=== PATIENT | male | born 1950 | race Caucasian/White ===

== ENCOUNTER 2017-11-18 08:01 | Outpatient (CLI) | payer MEDICARE ==
[~2017-11-18] VITALS: Ht 177.8 cm; Wt 99.1 kg
--- NOTE | ~2017-11-18 | HEMODYNAMI ---
PATIENT:ERICKA PAREDES MEDICAL RECORD: [id number] : 50 LOCATION:[facility] ADMISSION DATE: 11/18/17 Generatedon:11/18/201711:10 Patient name: ERICKA PAREDES Patient #: [id number] SSN: D OB: 1950 Date of study: 11/18/2017 Page: Of Hemodynamic Procedure Report Patient Data Patient Demographics Procedure consent was obtained First Name: ERICKA Gender: Male Last Name: LENA : 1950 Patient #: [id number] Age: 67 year(s) Race: Unknown Additional ID: [id number] Contact details [address]: [address] [place] [address] [address] State: [place] City: [place] Zip code: [address] Admission Admission Data Admission Date: 11/18/2017 Admission Time: 8:01 Admit Source: Other Procedure Procedure Types Cath Procedure Diagnostic Procedure LHC LHC w/Coronaries Procedure Description Procedure Date Procedure Date: 11/18/2017 Procedure Start Time: 10:53 Procedure End Time: 11:08 Procedure Staff Name Function Aakash Mccann MD Performing Physician Sánchez Acosta RT Monitor Bernabe Way RT Scrub Julio Coffey RN Nurse Jamal Lance RT Cigarette Examiner Procedure Data Cath Procedure Fluoroscopy Diagnostic fluoroscopy Total fluoroscopy Time: 4.8 time: 4.8 min min Diagnostic fluoroscopy Total fluoroscopy dose: 459 dose: 459 mGy mGy Contrast Material Contrast Material Type Amount (ml) Isovue 300 115 Entry Location Entry Primary Successful Side Size Upsize Upsize Entry Closure Amaya ccessful Closure Location (Fr) 1 (Fr) 2 (Fr) Remarks Device Remarks Radial Right 6 Fr Mechanical artery Short Compression Estimated blood loss: 10 ml Diagnostic catheters Device Type Used For End Catheter Placement DIAGNOSTIC Kinzers 110cm 5 Procedure Fr catheter ([id number]) Procedure Complications No complications Procedure Medications Medication Administration Route Dosage Oxygen etCO2 Nasal cannula 2 l/min Heparin Flush Bag added to field 2 bags (1000units/500ml NS) 0.9% NaCl I.V. 100 ml/hr Radial Cocktail added to field 1 syringe (Verapomil 2mg/Nitro 400mcg/Heparin 1500units) Fentanyl I.V. 50 mcg Versed I.V. 1 mg Radial Cocktail I.A. 1 syringe (Verapomil 2mg/Nitro 400mcg/Heparin 1500units) Fentanyl I.V. 50 mcg Versed I.V. 1 mg Heparin Bolus I.V. 4000 units Integrilin (Bolus I.V. 9 ml 2mg/ml) Integrilin (Bolus wasted 1 ml 2mg/ml) Hemodynamics Rest Heart Rate: 70 (bpm) Pressure Samples Time Site Value (mmHg) Purpose Heart Use Rate(bpm) 11:00 AO 152/80(110) Snapshot 71 11:01 AO 144/93(113) Snapshot 71 Snapshots Pre Cath Intra NCS Post Cath Vital Signs Time Heart Resp SPO2 etCO2 NIBP (mmHg) Rhythm Pain Sedation Rate (ipm) (%) (mmHg) Status Level (bpm) 10:44:54 69 16 96 39.1 167/97(142) NSR 0 (11) 10(A) , No pain 10:49:28 68 17 97 47.3 157/86(137) NSR 0 (11) 10(A) , No pain 10:53:48 82 16 96 48.8 163/100(143) NSR 0 (11) 10(A) , No pain 10:58:16 84 17 95 45.8 158/103(144) NSR 0 (11) 9(A) , No pain 11:03:42 73 16 92 44.3 169/97(138) NSR 0 (11) 9(A) , No pain 11:06:44 76 16 95 41.3 143/77(126) NSR 0 (11) 9(A) , No pain Medications Time Medication Route Dose Verified Delivered Reason Not es Effectiveness by by 10:44:32 Oxygen etCO2 2 l/min Aakash Kim Per physician Nasal Siobhan Coffey RN cannula 10:44:40 Heparin Flush added 2 bags Aakash Kim used for Bag to Siobhan Coffey feed handler (1000units/500ml field NS) 10:44:49 0.9% NaCl I.V. 100 Aakash Kim Per physician ml/hr Siobhan Coffey RN 10:44:58 Radial Cocktail added 1 Aakash Kim used for (Verapomil to syringe Siobhan Coffey RN procedure 2mg/Nitro field 400mcg/Heparin 1500units) 10:52:16 Fentanyl I.V. 50 mcg Aakash Kim for sedation Siobhan Coffey RN 10:52:23 Versed I.V. 1 mg Aakash Whitmorey for sedation Siobhan Coffey RN 10:53:22 Radial Cocktail I.A. 1 Aakash Finn for (Verapomil syringe Siobhan Mccann MD vasodilation 2mg/Nitro 400mcg/Heparin 1500units) 10:54:03 Fentanyl I.V. 50 mcg Aakash Kim for sedation Siobhan Coffey RN 10:54:07 Versed I.V. 1 mg Aakash Kim for sedation Siobhan Coffey RN 11:01:10 Heparin Bolus I.V. 4000 Aakash Kim for units Siobhan Coffey RN anticoagulation 11:01:24 Integrilin I.V. 9 ml Aakash Kim for (Bolus 2mg/ml) Siobhan Coffey RN antiplatelet therapy 11:01:33 Integrilin wasted 1 ml Aakash Kim for (Bolus 2mg/ml) Siobhan Coffey RN antiplatelet therapy Procedure Log Time Note 10:15:09 Jamal Lance RT(R) sent for patient. Start room use. 10:32:21 Informed consent obtained and on chart 10:32:25 Admit Source: Other 10:33:05 Diagnostic Cath status Elective 10:33:15 Time tracking: Regular hours (M-F 7:00 - 5:00) 10:33:20 Plan of Care:Hemodynamics will remain stable., Cardiac rhythm will remain stable., Comfort level will be maintained., Respiratory function will remain adequate., Patient/ family verbilizes understanding of procedure., Procedure tolerated without complication., Recovers from procedure without complications.. 10:33:31 Patient received from Pre/Post Procedure Room to CCL 3 Alert and oriented. Tansferred to table in Supine position. 10:33:32 Warm blankets applied, and eugenio hugger turned on for patient comfort. 10:33:32 Correct patient and procedure confirmed by team. 10:33:33 ECG and BP/O2 sat monitors applied to patient. 10:33:35 Pre-procedure instructions explained to patient. 10:33:36 Pre-op teaching completed and patient verbalized understanding. 10:33:37 Family in waiting room. 10:33:38 Patient NPO since Midnight. 10:43:29 Vital chart was started 10:44:32 Oxygen 2 l/min etCO2 Nasal cannula was administered by Julio Coffey RN; Per physician; 10:44:40 Heparin Flush Bag (1000units/500ml NS) 2 bags added to field was administered by Julio Coffey RN; used for procedure; 10:44:49 0.9% NaCl 100 ml/hr I.V. was administered by Julio Coffey RN; Per physician; 10:44:58 Radial Cocktail (Verapomil 2mg/Nitro 400mcg/Heparin 1500units) 1 syringe added to field was administered by Julio Coffey RN; used for procedure; 10:50:39 Baseline sample Acquired. 10:50:42 Rhythm: sinus rhythm 10:50:43 Full Disclosure recording started 10:50:45 Is the patient allergic to Iodine/contrast media? No. 10:50:53 Is patient on blood thinner?No 10:50:54 Patient diabetic? No. 10:50:57 Previous problem with sedation/anesthesia? No ? 10:50:58 Snore? Yes 10:51:00 Sleep apnea? No 10:51:01 Deviated septum? No 10:51:02 Opens mouth fully? Yes 10:51:02 Sticks out tongue? Yes 10:51:04 Airway obstruction? No ? 10:51:07 Dentures? No ? 10:51:09 Pre procedure: right dorsailis pedis pulse 1+ Palpable, but thready & weak; easily obliterated 10:51:11 Modified Yogesh's test Ulnar < 7 seconds 10:51:12 Patient pain scale 0/10 ?. 10:51:16 IV patent on arrival in left forearm with 0.9% NaCl at [facility]. 10:51:19 Lab results completed and on chart. 10:51:22 Right Radial & Right Groin area was prepped with chlora-prep and draped in sterile fashion 10:51:23 Alarms reviewed by R. N. 10:51:23 Sharps counted by scrub and verified by R.N. 10:51:26 --------ALL STOP TIME OUT------ 10:51:26 Final Timeout: patient, procedure, and site verified with staff and physician. All members of the team are in agreement. 10:51:28 Right Radial & Right Groin site verified by team. 10:51:30 Physical assessment completed. ASA score P 2 - A patient with mild systemic disease as per Aakash Mccann MD. 10:51:34 Sedation plan: IV Moderate Sedation Medication:Versed, Fentanyl 10:52:16 Fentanyl 50 mcg I.V. was administered by Julio Coffey RN; for sedation; 10:52:23 Versed 1 mg I.V. was administered by Julio Coffey RN; for sedation; 10:52:24 Zero performed for pressure channel P1 10:53:08 Use device set Radial Dx or PCI 10:53:09 Tegaderm 4 x 4 (1626W) opened to sterile field. 10:53:10 ACIST Manifold (48184) opened to sterile field. 10:53:11 ACIST Hand Control (54266) opened to sterile field. 10:53:14 ACIST Syringe (33845) opened to sterile field. 10:53:15 Medline Cath Pack ([id number]) opened to sterile field. 10:53:15 Bag Decanter (2002S) opened to sterile field. 10:53:15 DIAGNOSTIC WIRE .035 260cm J wire (015449) opened to sterile field. 10:53:16 MBrace Wrist Support ([id number]) opened to sterile field. 10:53:17 SHEATH 6Fr Prelude Radial ([id number]) opened to sterile field. 10:53:22 Radial Cocktail (Verapomil 2mg/Nitro 400mcg/Heparin 1500units) 1 syringe I.A. was administered by Aakash Mccann MD; for vasodilation; 10:53:23 Procedure started. 10:53:27 Local anesthetic to right radial artery with Lidocaine 2% by Aakash Mccann MD.INITIAL ACCESS ONLY 10:53:49 A 6 Fr Short sheath was inserted into the Right Radial artery 10:53:55 A DIAGNOSTIC Kinzers 110cm 5 Fr catheter ([id number]) was advanced over the wire and used for Procedure. 10:54:03 Fentanyl 50 mcg I.V. was administered by Julio Coffey RN; for sedation; 10:54:07 Versed 1 mg I.V. was administered by Julio Coffey RN; for sedation; 10:54:12 LV angiography performed. 10:54:13 LV gram done using ALVAREZ 10:54:31 EF : 55 % 10:54:34 Injector settings: Ml/sec: 7, Volume: 15, 10:55:47 RCA angiography performed. 10:56:37 Catheter exchanged over wire. 10:56:41 Use device set TAU PCI 10:56:56 GUIDE 6FR EBU 3.5 SH catheter ([id number]) opened to sterile field. 10:57:15 6 Fr EBU 3.5 SH guide catheter was inserted over the wire 10:57:42 LCA angiography performed. 10:59:24 INFLATOR Merit BasixCompak (BB3970) opened to sterile field. 10:59:43 FIELDER XT J 300cm guide wire ([id number]) opened to sterile field. 11:00:36 Fielder wire advanced. 11:01:10 Heparin Bolus 4000 units I.V. was administered by Julio Coffey RN; for anticoagulation; 11:01:24 Integrilin (Bolus 2mg/ml) 9 ml I.V. was administered by Julio Coffey RN; for antiplatelet therapy; 11:01:33 Integrilin (Bolus 2mg/ml) 1 ml wasted was administered by Julio Coffey RN; for antiplatelet therapy; 11:04:27 The EMERGE OTW 1.5 x 15 balloon ([id number]) was advanced and then removed because of failure to cross lesion 11:04:40 Wire removed. unable to cross lesion. 11:04:43 Guide catheter removed. 11:04:45 TR BAND Standard ([id number]) opened to sterile field. 11:05:04 Sheath removed intact; hemostasis achieved with Mechanical Compression to the Right Radial artery. 11:05:17 Procedure ended.(Physican Out) 11:06:40 Fluoroscopy time 04.80 minutes. 11:06:46 Fluoroscopy dose: 459 mGy 11:06:46 Flurop Dose total: 459 11:06:57 Contrast amount:Isovue 300 115ml. 11:06:58 Sharps counted by scrub and verified by R.N. 11:07:01 TR band inflated with 11cc of air. 11:07:02 Insertion/operative site no bleeding no hematoma. 11:07:03 Post Procedure Pulses reassessed and unchanged 11:07:05 Post-procedure physical assessment completed. ASA score P 2 - A patient with mild systemic disease as per Aakash Mccann MD. 11:07:08 Post procedure rhythm: unchanged. 11:07:11 Estimated blood loss: 10 ml 11:07:12 Post procedure instruction explained to patient.Patient verbalizes understanding. 11:07:12 Patient needs reinforcement of post procedure teaching. 11:07:21 Procedure and supply charges have been captured, reviewed, submitted and are correct. 11:07:23 Procedure Complication : No complications 11:07:51 Vital chart was stopped 11:07:52 See physician's report for complete and final results. 11:07:54 Report given to Pre/Post Procedure Room. 11:08:01 Patient transfered to Pre/Post Procedure Room with Stretcher. 11:08:03 Procedure ended. 11:08:03 Full Disclosure recording stopped 11:08:44 End room use (Document Last) Intervention Summary Intervention Notes Time ActionType Lesion and Equipment Action# Pressure Duration Attributes Used 11:04:27 Discard EMERGE OTW Balloon 1.5 x 15 balloon ([id number]) Device Usage Item Name Manufacture Quantity Catalog Number Hospital Part Current Minimal Lot# / Charge Number Stock Stock Serial# Code Tegaderm 4 x 4 3M 1 [id number] 835145 [id number] 5 (1626W) ACIST Manifold Acist 1 97608 588236 625506 584673 5 (79271) [employer] Inc ACIST Hand Acist 1 49414 163660 084963 216870 5 Control (21786) [employer] Inc ACIST Syringe Acist 1 95702 782205 380545 183167 20 (74899) Medical Systems Inc Medline Cath Cardinal 1 [id number] 344993 48337 206320 5 Pack Health ([id number]) Bag Decanter Microtek 1 2001S 419540 63260 469041 5 (2001S) Medical Inc. DIAGNOSTIC WIRE [place] 1 267816 485748 516486 375244 30 .035 260cm J wire (706870) MBrace Wrist Advanced 1 140-0250-00 446941 96753 344077 5 Support Vascular ([id number]) Dynamics SHEATH 6Fr Merit 1 [id number] 668497 884644 905000 5 Prelude Radial Medical ([id number]) DIAGNOSTIC Terumo 1 40-8346 112271 049343 094258 5 Kinzers 110cm 5 Fr catheter (972569) GUIDE 6FR EBU Medtronic 1 [id number] 371418 21019 151198 1 3.5 SH catheter ([id number]) INFLATOR Merit Merit 1 QB9097 263631 805168 059058 15 [facility] (SW7024) FIELDER XT J [place] 1 [id number] 051718 777202 274373 5 300cm guide Vascular wire ([id number]) EMERGE OTW 1.5 [place] 1 [id number] 656194 739340 784625 5 [id number] x 15 balloon Scientific ([id number]) TR BAND Terumo 1 [id number] 351134 849909 436039 40 Standard ([id number]) Signature Audit [place] Stage Time Signature Unsigned Intra-Procedure 11/18/2017 Sánchez Acosta 11:10:46 AM RT(R) Signatures Monitor : Sánchez Acosta RT Signature : Date : Time : [address] [address]
--- NOTE | ~2017-11-18 | OP ---
PATIENT NAME: ERICKA PAREDES MEDICAL RECORD: [id number] :50 LOCATION:[facility] ADMISSION DATE: SURGEON: SOCO ESTEBAN MD DATE OF OPERATION: 11/18/2017 FINDINGS: 1. Left heart catheterization. 2. Selective coronary angiography. 3. Left ventriculogram. 4. Attempted, but failed PTCA stent of the LAD due to total occlusion. PROCEDURE IN DETAIL: After informed consent was obtained and after a detailed description of the risks, benefits as well as alternative therapies, the patient elected to proceed with angiogram and heart catheterization. FINDINGS: Left ventriculogram was performed in standard 30-degree ALVAREZ view, reveals good cardiac wall motion throughout all segments. Overall ejection fraction estimated 60%. SELECTIVE CORONARY ANGIOGRAPHY: 1. Left main is with no significant angiographic disease. 2. Left anterior descending has a chronic total occlusion in the proximal vessel. The distal LAD has a good lumen suitable for grafting. 3. The left circumflex has at least 80% stenosis proximally with a good lumen distally suitable for grafting. 4. Right coronary artery has 95% stenosis in the mid vessel with a good lumen suitable for grafting. ATTEMPTED PTCA STENT OF THE LAD: We could not cross the total occlusion of the LAD with any wire balloon combination. OVERALL IMPRESSION: Severe 3-vessel coronary artery disease. Evaluate for bypass surgery. TRANSINT:[id number] Voice Confirmation ID: [id number] DOCUMENT ID: [id number] SOCO ESTEBAN MD at 1843 CC: [id number] DICTATION DATE: 11/18/17 1109 POLYSOMNOGRAPHY TECHNICIAN: 11/18/17 1125 [facility] CLI 11/18/[address] [address]
[2017-11-18] MEDS ORDERED: DESERYL100 MG PO (08:32)
[2017-11-18] MEDS ORDERED: LITHIUM CARBON150 MG (08:32)
[2017-11-18] MEDS ORDERED: GLUCOPHAGE500 MG PO (08:32)
[2017-11-18 08:43] VITALS: BP 164/70; Ht 177.8 cm; Wt 99.1 kg
[2017-11-18 09:00] LABS: BASOPHILS 0.4 % (0-2); EOSINOPHILS 3.4 % (0-7); HEMOGLOBIN 13.3 g/dL (13.5-17.5); IMMATURE GRANULOCYTES 0.2 % (0-5); MCH 29.6 pg (26.0-34.0); MCV 84.4 fL (80.0-100.0); MEAN PLATELET VOLUME 9.6 fL (7.4-10.4); MONOCYTES 6.5 % (2-11); NEUTROPHILS 60.5 % (40-80); PLATELET COUNT 159 10x3/uL (130-400); WBC 4.9 10x3/uL (4.8-10.8)
[2017-11-18 09:07] LABS: ANION GAP 10.5 mmol/L (8-16); CALCIUM 8.1 mg/dL (8.5-10.1); CARBON DIOXIDE 27.6 mmol/L (21.0-32.0); CREATININE - SERUM 1.1 mg/dL (0.6-1.3); POTASSIUM - SERUM 4.1 mmol/L (3.5-5.1)
== END 2017-11-18 15:40 | disposition home or self-care (01) ==
LOC: D.CATH 08:01
PROVIDERS: Internal Medicine Interventional Cardiology
DX: I25.119 Atherosclerotic heart disease of native coronary artery with unspecified angina pectoris (principal); I25.82 Chronic total occlusion of coronary artery; Z01.812 Encounter for preprocedural laboratory examination

== ENCOUNTER 2018-07-11 05:30 | Day surgery (SDC) | payer MEDICARE ==
[2018-07-10 13:25] LABS: HEMATOCRIT 37.4 % (42.0-54.0); HEMOGLOBIN 12.8 g/dL (13.5-17.5); MCH 28.8 pg (26.0-34.0); MCHC 34.2 g/dL (31.0-37.0); MCV 84.2 fL (80.0-100.0); MEAN PLATELET VOLUME 9.3 fL (7.4-10.4); RBC 4.44 10x6/uL (4.20-6.10); RDW 13.8 % (11.5-14.5); WBC 6.4 10x3/uL (4.8-10.8)
[2018-07-10 13:40] LABS: ANION GAP 11.5 mmol/L (8-16); CALCIUM 8.7 mg/dL (8.5-10.1); CARBON DIOXIDE 28.6 mmol/L (21.0-32.0); CREATININE - SERUM 1.1 mg/dL (0.6-1.3); POTASSIUM - SERUM 4.1 mmol/L (3.5-5.1)
[~2018-07-11] VITALS: Ht 177.8 cm; Wt 98.9 kg
[~2018-07-11 05:30] MED LIST: BACTRIM 400-801 TAB PO; BAYER CHEWABLE81 MG PO; CENTRUM MEN'S1 EACH PO; DESERYL100 MG PO; GLUCOPHAGE500 MG PO; LIPITOR40 MG PO; LISINOPRIL40 MG PO; LITHIUM CARBON150 MG; METOPROL TAR TAB 100 PO
[2018-07-11 06:21] VITALS: BP 124/65; Ht 177.8 cm; Wt 98.9 kg
--- NOTE | 2018-07-11 09:26 | OP ---
PATIENT NAME: ERICKA PAREDES MEDICAL RECORD: [id number] :50 [facility] DATE: SURGEON: PRAVEEN SAN MD DATE OF OPERATION: 07/11/2018 SURGEON: Praveen San MD ANESTHESIA: TIVA. DIAGNOSIS: Elevated PSA of 4.59 (04/27/2018). PROCEDURES: Transrectal ultrasound and prostate biopsy. FINDINGS: A 47 gram prostate with intraprostatic stones. SPECIMENS: Prostate biopsy cores. BLOOD LOSS: None. CLINICAL HISTORY: This is a 67-year-old male referred with an elevated PSA. He had been feeling symptoms of low serum testosterone and he was wanting to start testosterone supplementation. This was reason for testing the PSA. He does not have any voiding symptoms. He comes today to have a prostate biopsy performed. He is not allergic to any medications. He was given Ancef compensation specialist to the OR. DESCRIPTION OF PROCEDURE: The patient was given IV sedation. He was placed in lithotomy position and prepped and draped. The transrectal ultrasound probe was introduced and prostate size measurements were obtained. We obtained a size of 47 grams. No hypoechoic areas were seen. Intraprostatic stones were seen. Sextant biopsies were obtained with at least 3 cores from each sextant. Once all the specimens were obtained, the procedure was terminated. During the ultrasound, we could tell that his bladder was quite full. At the end of the procedure, a 16-Kittitian red rubber catheter was inserted for in and out catheter drainage of his bladder. The patient was then brought back to the preoperative holding area. I will see him in followup next week to review the pathology results with him. TRANSINT:[id number] Voice Confirmation ID: [id number] DOCUMENT ID: [id number] PRAVEEN SAN MD at 0926 CC: [id number] DICTATION DATE: 07/11/18 08 INFORMATION TECHNOLOGY ASSOCIATE: 07/11/18 [address] [place] [address]
== END 2018-07-11 09:30 | disposition home or self-care (01) ==
LOC: D.OPS 05:30 → D.PAN 09:30
PROVIDERS: Anesthesiology; ATTEND Urology
DX: N42.0 Calculus of prostate (principal); R97.20 Elevated prostate specific antigen [PSA]

== ENCOUNTER → 2018-08-08 07:29 | Outpatient (CLI) | payer MEDICARE ==
[2018-07-11 06:21] VITALS: BMI 31.3
== END | disposition home or self-care (01) ==
LOC: D.CT 07:29
PROVIDERS: ATTEND Internal Medicine
DX: C61 Malignant neoplasm of prostate (principal)